=== PATIENT | female | born 1940 | race Caucasian/White ===

== ENCOUNTER 2019-09-16 01:28 | Emergency (ER) | payer OTHER, MEDICARE ==
[~2019-09-16] VITALS: Ht 167.6 cm; Wt 68.0 kg
[2019-09-16 01:46] VITALS: BP 197/92
[2019-09-16] MEDS ORDERED: ACETAMINOPHEN 325 MG TAB PO ONE (01:50)
[2019-09-16] MEDS ORDERED: ONDANSETRON 4 MG/2 ML VIAL IVP ONE (01:50)
[2019-09-16 02:30] LABS: BASOPHILS % (AUTO) 0.3 % (0.0-2.0); EOSINOPHILS # (AUTO) 0.3 K/uL (0-0.4); EOSINOPHILS % (AUTO) 3.9 % (0.0-4.0); HEMATOCRIT 44.5 % (36-48); HEMOGLOBIN 14.6 g/dL (12.0-16.0); LYMPHOCYTES # (AUTO) 1.6 K/uL (2.5-16.5); LYMPHOCYTES % (AUTO) 22.5 % (20.5-51.1); MEAN CORPUSCULAR HEMOGLOBIN 31 pg (27-31); MEAN CORPUSCULAR HGB CONC 33 g/dL (33-37); MEAN CORPUSCULAR VOLUME 94.4 fL (80-94); MONOCYTES # (AUTO) 0.6 K/uL (0.8-1.0); NEUTROPHILS # (AUTO) 4.7 K/uL (1.8-7.7); NEUTROPHILS % (AUTO) 65.3 % (42.2-75.2); PLATELET COUNT (AUTO) 223 K/uL (140-450); RED BLOOD CELL COUNT(AUTO) 4.71 MIL/uL (4.20-5.40); RED CELL DISTRIBUTION WIDTH 12.5 % (11.6-13.7); WHITE BLOOD COUNT (AUTO) 7.3 K/uL (4.8-10.8)
[2019-09-16] MEDS ORDERED: ONDANSETRON 4 MG ODT ONE (02:34)
[2019-09-16] MEDS ORDERED: ONDANSETRON 4 MG ODT PO ONE (02:35)
[2019-09-16] MEDS ORDERED: ONDANSETRON 4 MG/5 ML ORASYR PO ONE (02:40)
[2019-09-16 02:52] LABS: ALBUMIN 3.7 g/dL (3.4-5.0); ANION GAP 9.8 (8-16); ASPARTATE AMINOTRANSFERASE 29 U/L (15-37); CARBON DIOXIDE 30.1 mmol/L (21-32); CHLORIDE 101 mmol/L (98-107); CREATININE 1.2 mg/dL (0.6-1.3); GLUCOSE 114 mg/dL (74-106); POTASSIUM 3.9 mmol/L (3.5-5.1); SODIUM SERUM 137 mmol/L (136-145); TOTAL BILIRUBIN 0.5 mg/dL (0.0-1.0); UREA NITROGEN, BLOOD 13 mg/dL (7-18)
[2019-09-16 03:28] LABS: FREE T4 (FREE THYROXINE) 1.05 ng/dL (0.76-1.46); THYROID STIMULATING HORMONE 3.36 uIU/mL (0.34-3.74)
[2019-09-16 05:45] VITALS: BP 96/56
[2019-09-16 14:36] LABS: APPEARANCE,URINE HAZY (CLEAR); BILIRUBIN,URINE NEGATIVE (NEGATIVE); BLOOD, URINE NEGATIVE (NEGATIVE); COLOR,URINE STRAW (YELLOW); LEUKOCYTE ESTERASE ,URINE 2+ (NEGATIVE); NITRITE, URINE NEGATIVE (NEGATIVE); PH,URINE 7.5 (5.0-9.0); UGLUCOSE NEGATIVE (NEGATIVE)
[2019-09-16 14:50] LABS: RBC,URINE NONE SEEN /HPF (0-5); WBC,URINE 0-5 /HPF (0-5)
== END 2019-09-16 05:40 | disposition home or self-care (01) ==
LOC: MED 01:28
DX: I10 Essential (primary) hypertension (principal); R53.1 Weakness
CPT/HCPCS: 36415; 70450; 71045; 80053; 81001; 83880; 84439; 84443; 84484; 85025; 87086; 93005; 99285; Q0092; Q0162

== ENCOUNTER 2020-03-09 19:57 | Emergency (ER) | payer OTHER ==
[~2020-03-09] VITALS: Ht 167.6 cm; Wt 68.0 kg
[2020-03-09 20:00] VITALS: BP 206/91
--- NOTE | 2020-03-09 20:00 | NUR ---
PT TO WAIT IN AMBULANCE FOR BED.
--- NOTE | 2020-03-09 20:57 | NUR ---
PT TAKEN TO LOBBY TO A/[facility]
--- NOTE | 2020-03-09 21:01 | NUR ---
BP NOTED AT 153/54
[2020-03-09 21:45] VITALS: BP 153/54
--- NOTE | 2020-03-10 00:09 | NUR ---
EKG PERFORMED IN PHLEBOTOMY CHAIR WITH SCREEN. EKG READS SINUS RHYTHM @ 66
--- NOTE | 2020-03-10 02:00 | NUR ---
Patient discharged with v/s stable. Written and verbal after care instructions given and explained. Patient alert, oriented and verbalized understanding of instructions. Ambulatory with steady gait. All questions addressed prior to discharge. ID band removed. Patient advised to follow up with PMD. Rx of ZOFRAN AND MOTRIN given. Patient educated on indication of medication including possible reaction and side effects. Opportunity to ask questions provided and answered.
== END 2020-03-10 02:00 | disposition home or self-care (01) ==
LOC: MED 19:57
DX: R55 Syncope and collapse (principal); M54.9 Dorsalgia, unspecified; R11.0 Nausea; I10 Essential (primary) hypertension
CPT/HCPCS: 81002; 93005; 99284